=== PATIENT | female | born 1995 | race Caucasian/White ===

== ENCOUNTER 2016-05-26 12:01 | Emergency (ER) | payer SELFPAY ==
[~2016-05-26] VITALS: Ht 160 cm; Wt 59.3 kg
[~2016-05-26 12:01] MED LIST: CYCL-36 PO; KETO10 PO
[2016-05-26 12:26] VITALS: BP 135/94; PULSE 108; RESP 16; TEMP 98.9; O2SAT 100
--- NOTE | 2016-05-26 12:40 | PD ---
HPI Chief Complaint: Complaint Time Seen by Provider: 12:40 Travel History International Travel<30 days: No Contact w/Intl Traveler<30days: No Traveled to known affect area: No History of Present Illness HPI 21-year-old female presents the emergency Department with 1 week of urinary frequency and dysuria. Patient denies nausea, vomiting, abdominal pain , flank pain, or vaginal symptoms. Patient states she's not currently sexually active. Patient has no history of urinary tract infection in the past. Patient states she does not drink a lot of water. She has no known drug allergies. [facility] Past Medical History Diminished Hearing: No Immunizations Current: Yes LMP: 05/02/16 Social History Alcohol Use: No Tobacco Use: No Substance Use: No Allergies-Medications (Allergen,Severity, Reaction): Coded Allergies: No Known Allergies (Verified , 05/26/16) Reported Meds & Prescriptions Reported Meds & Active Scripts Active No Active Prescriptions or Reported Medications Review of Systems Except as stated in HPI: all other systems reviewed are Neg General / Constitutional: No: Fever Eyes: No: Visual changes HENT: No: Headaches Cardiovascular: No: Chest Pain or Discomfort Respiratory: No: Shortness of Breath Gastrointestinal: No: Abdominal Pain Genitourinary: Positive: Urgency, Frequency, Dysuria, No: Pelvic Pain, Flank Pain, Discharge Musculoskeletal: No: Pain Skin: No Rash Neurologic: No: Weakness Psychiatric: No: Depression Endocrine: No: Polydipsia Hematologic/Lymphatic: No: Easy Bruising Physical Exam Narrative GENERAL: Patient appears no acute distress. SKIN: Warm and dry. Normal color. Normal turgor. HEAD: Atraumatic. Normocephalic. EYES: Pupils equal and round. No scleral icterus. No injection or drainage. ENT: No nasal bleeding or discharge. Mucous membranes pink and moist. Pharynx is clear. NECK: Trachea midline. Supple nontender. CARDIOVASCULAR: Regular rate and rhythm. RESPIRATORY: No accessory muscle use. Clear to auscultation. Breath sounds equal bilaterally. GASTROINTESTINAL: Abdomen soft, non-tender, nondistended. Hepatic and splenic margins not palpable. No CVA tenderness. MUSCULOSKELETAL: Extremities without clubbing, cyanosis, or edema. No obvious deformities. NEUROLOGICAL: Awake and alert. No obvious cranial nerve deficits. Motor grossly within normal limits. Five out of 5 muscle strength in the arms and legs. Normal speech. PSYCHIATRIC: Appropriate mood and affect; insight and judgment normal. Data Data Last Documented VS Vital Signs Date Time Temp Pulse Resp B/P Pulse Ox O2 Delivery O2 Flow Rate FiO2 05/26/16 12:26 98.9 108 16 135/94 100 Orders Urinalysis - C+S If Indicated (05/26/16 12:38) Ed Urine Pregnancytest Poc (05/26/16 12:38) Urine Culture (05/26/16 12:35) Labs Laboratory Tests Test 05/26/16 12:35 Urine Collection Type CLEAN CATCH Urine Color YELLOW Urine Turbidity MOD Urine pH 7.0 Urine Specific [place] 1.020 Urine Protein TRACE mg/dL Urine Glucose (UA) NEG mg/dL Urine Ketones NEG mg/dL Urine Occult Blood LARGE Urine Nitrite NEG Urine Bilirubin NEG Urine Leukocyte Esterase LARGE Urine RBC 100-200 /hpf Urine WBC INNUM /hpf Urine WBC Clumps MOD Urine Squamous Epithelial 0-5 /hpf Cells Urine Amorphous Sediment MOD Urine Bacteria MOD /hpf Microscopic Urinalysis Comment CULTURE INDICATED Urine Collection Time 1235 MDM Medical Decision Making Medical Screen Exam Complete: Yes Emergency Medical Condition: Yes Differential Diagnosis Dysuria. Urinary tract infection. Urethritis. Narrative Course Patient is medically stable at time of exam. Urine and urinalysis is ordered. Urinalysis is indicative of probable infection. Urine culture is pending. Patient is treated with Keflex 500 mg 3 times a day 7 days. Patient is given Pyridium 100 mg every 8 hours when necessary dysuria #15. Patient is encouraged to drink plenty of fluids including cranberry supplementation. Patient follow up with primary care physician as needed. Patient can return to emergency department if symptoms worsen with the above treatment plan. Diagnosis Primary Impression: Urinary tract infection Qualified Code: N30.00 - Acute cystitis without hematuria Referrals: [facility] Patient Instructions: Dysuria (ED), General Instructions Additional Instructions: Urinalysis is indicative of probable infection. Urine culture is pending. Patient is treated with Keflex 500 mg 3 times a day 7 days. Patient is given Pyridium 100 mg every 8 hours when necessary dysuria #15. Patient is encouraged to drink plenty of fluids including cranberry supplementation. Patient follow up with primary care physician as needed. Patient can return to emergency department if symptoms worsen with the above treatment plan. Med/Other Pt SpecificInfo: Prescription(s) given Scripts Phenazopyridine (Pyridium)100 Mg [id number] Mg PO Q8H PRN (DYSURIA) #15 TAB Ref 0 Prov:Beto Diaz MD 05/26/16 Cephalexin (Keflex)500 Mg [id number] Mg PO Q8H #21 CAP Prov:Beto Diaz MD 05/26/16 Disposition: 01 DISCHARGE HOME Condition: Stable Leonardo Brooks May 26, 2016 12:40
[2016-05-26 12:45] LABS: BLOOD, URINE LARGE (NEG); GLUCOSE,URINE NEG (NEG); KETONE, URINE NEG (NEG); NITRITE,URINE NEG (NEG)
[2016-05-26 12:48] LABS: METHOD OF COLLECTION CLEAN CATCH; URINE COLOR YELLOW (YELLW/STRAW)
[2016-05-26 12:50] LABS: BACTERIA, URINE MOD /hpf; COMMENT (UR) CULTURE INDICATED; CULTURE IF INDICATED CULTURE INDICATED; RBC, URINE 100-200 /hpf (0-3); SQUAMOUS EPITHELIAL CELL URINE 0-5 /hpf (0-5); WBC, URINE INNUM /hpf (0-5)
[2016-05-26] MEDS ORDERED: PHEN0.4T PO (12:56)
[2016-05-26] MEDS ORDERED: CEPH-460 PO (12:56)
== END 2016-05-26 13:26 | disposition home or self-care (01) ==
LOC: PHEFT 12:01
DX: N30.00 Acute cystitis without hematuria (principal); B96.20 Unspecified Escherichia coli [E. coli] as the cause of diseases classified elsewhere
CPT/HCPCS: 81001; 84703; 87077; 87086; 87186; 99283